=== PATIENT | male | born 1970 | race Caucasian/White ===

== ENCOUNTER 2020-01-12 16:30 | Emergency (ER) | payer MEDICARE, MEDICAID ==
[~2020-01-12] VITALS: Ht 190.5 cm; Wt 75.0 kg
[2020-01-12] MEDS ORDERED: DiphenhydrAMINE HCL 50 MG/ML VIAL IM ONE ×2 (21:45)
[2020-01-12] MEDS ORDERED: HALOPERIDOL LACTATE 5 MG/ML VIAL IM ONE ×2 (21:45)
[2020-01-12] MEDS ORDERED: LORazepam 2 MG/ML VIAL IM ONE ×2 (21:45)
[2020-01-13 05:30] VITALS: BP 139/88
== END 2020-01-13 06:24 | disposition home or self-care (01) ==
LOC: EMS 16:30
DX: F15.10 Other stimulant abuse, uncomplicated (principal); R45.851 Suicidal ideations; F12.90 Cannabis use, unspecified, uncomplicated
CPT/HCPCS: 96372; 99291; J1200; J1630; J2060